=== PATIENT | female | born 1955 | race Caucasian/White ===

== ENCOUNTER 2020-10-24 08:57 | Day surgery (SDC) | payer BC, SELFPAY ==
--- NOTE | 2020-10-21 09:40 | P.CONAN_ITS ---
Documented by User: Arianne Sueroney 10/21/20 09:40 HPI - Anesthesia Eval Consult details Narrative: 65yo F for Upper End[facility] Balloon Dil[facility] Past Medical History Medical History GERD (gastroesophageal reflux disease) Hiatal hernia History of Whitaker's esophagus Surgical History Surgical History H/O colonoscopy History of esophagogastroduodenoscopy (EGD) Hx of oophorectomy Social History Social History Smoking Status: Unknown if ever smoked Use of substances other than those prescribed or required for medical reasons: No Advance Directives Information Provided: No Meds Allergies Allergy/AdvReac Type Severity Reaction Status Date / Time amoxicillin Allergy Intermediate Rash Verified 10/18/20 10:38 sulfamethoxazole Allergy Intermediate Rash Verified 10/18/20 10:38 [From Bactrim] trimethoprim [From Bactrim] Allergy Intermediate Rash Verified 10/18/20 10:38 Home Medications Medication Instructions Recorded Confirmed Last Taken Type Vitamin D3 1 tab PO DAILY 10/18/20 10/18/20 Unknown History calcium 600 mg PO DAILY 10/18/20 10/18/20 Unknown History cranberry 1 tab PO DAILY 10/18/20 10/18/20 Unknown History multivitamin 1 tab PO DAILY 10/18/20 10/18/20 Unknown History rabeprazole 1 tab PO DAILY 10/18/20 10/18/20 Unknown History Exam Exam Date and Time: October 21, 2020 0940 Height,Weight and Vital Signs: Height 5 ft 5.75 in Weight 83.915 kg Assessment and Plan Assessment Anesthesia Assessment: Chart Reviewed Documented by User: Jann Colbert MD 10/24/20 09:45 PMF[facility] Past Medical History Medical History GERD (gastroesophageal reflux disease) Hiatal hernia History of Whitaker's esophagus Surgical History Surgical History H/O colonoscopy History of esophagogastroduodenoscopy (EGD) Hx of oophorectomy Social History Social History Smoking Status: Unknown if ever smoked Use of substances other than those prescribed or required for medical reasons: No Advance Directives Information Provided: No Meds Allergies Allergy/AdvReac Type Severity Reaction Status Date / Time amoxicillin Allergy Intermediate Rash Verified 10/18/20 10:38 sulfamethoxazole Allergy Intermediate Rash Verified 10/18/20 10:38 [From Bactrim] trimethoprim [From Bactrim] Allergy Intermediate Rash Verified 10/18/20 10:38 Home Medications Medication Instructions Recorded Confirmed Last Taken Type Vitamin D3 1 tab PO DAILY 10/18/20 10/18/20 Unknown History calcium 600 mg PO DAILY 10/18/20 10/18/20 Unknown History cranberry 1 tab PO DAILY 10/18/20 10/18/20 Unknown History multivitamin 1 tab PO DAILY 10/18/20 10/18/20 Unknown History rabeprazole 1 tab PO DAILY 10/18/20 10/18/20 Unknown History Exam Airway Mallampati Class: II TM Dist: >3cm Neck ROM: Full Loose/Missing/Broken Teeth: No Heart: RRR Lungs: NL Assessment and Plan Assessment Anesthesia Assessment: Anesthesia Plan Discussed and Chart Reviewed Final Anesthetic Review NPO: Yes ASA Class: III Final Preanesthetic Review: No Changes in Pt Med Stat, Meds/Allgs Chart Reviewed, Consent Obtained/Reviewed and Anes Risks/Benef Reviewed Patient Risk: Intermediate Procedure Risk: Low Anesthetic Plan Anesthetic Plan: MAC: Disposition: Standard PACU
[2020-10-24 09:27] VITALS: BP 133/80; PULSE 73; RESP 16; TEMP 36.8; O2SAT 97
[2020-10-24] MEDS: Lactated Ringers 1,000 ML 100 ML IVCONT (09:35)
[2020-10-24 10:15] VITALS: BP 115/72; PULSE 72; RESP 18; TEMP 36.6; O2SAT 100
--- NOTE | 2020-10-24 10:20 | PM.OP ---
Brief Operative Note Date of Service: 10/24/20 Pre-op diagnosis: GERD, Dysphagia Post-op diagnosis: other (Hiatal hernia, Nonobstructing distal esophageal ring) Procedure: EGD with biopsies and Balloon Dilation Surgeon: Gal Richter Anesthesia: MAC Estimated blood loss (mL): 3.0 Pathology: other (A. EG Junction at 35cm) Condition: stable Disposition: PACU
[2020-10-24 10:32] VITALS: BP 132/78; PULSE 72; RESP 16; TEMP 36.6; O2SAT 97
--- NOTE | 2020-10-24 10:58 | OP_ITS ---
SURGEON: Gal Richter MD INDICATIONS: The patient presents for evaluation of gastroesophageal reflux and dysphagia. Full consent has been obtained from her for this, including risks of bleeding and perforation. PREOPERATIVE DIAGNOSIS: POSTOPERATIVE DIAGNOSIS: PROCEDURE PERFORMED: Esophagogastroduodenoscopy with balloon dilation of gastroesophageal junction, and biopsies. ESTIMATED BLOOD LOSS: COMPLICATIONS: ANESTHESIA: Monitored anesthesia care. ASSISTANTS: SPECIMENS: PREOPERATIVE DIAGNOSES: Gastroesophageal reflux and dysphagia. POSTOPERATIVE DIAGNOSES: Gastroesophageal reflux and dysphagia, hiatal hernia. DESCRIPTION OF PROCEDURE: The patient was placed in the left lateral decubitus position. The Olympus video gastroscope was passed in the posterior oropharynx and upper esophagus under direct vision. The scope was passed slowly into the distal esophagus. The gastroesophageal junction appeared at 35 cm. There was some very minimal irregularity consistent with reflux, but no definitive evidence of Whitaker's mucosa nor esophagitis. There was a nonobstructing very mild distal esophageal ring at the EG junction. There was no obstruction of the scope, which easily entered into the stomach. There was a small hiatal hernia. The scope was advanced to the pylorus and the duodenum was cannulated to the descending portion. The duodenum including the bulb appeared normal without mass or ulceration. The scope was withdrawn back in the stomach. The gastric antrum and body appeared normal with good peristalsis. Scope was retroflexed visualizing the proximal stomach carefully which appeared normal, without any sign of mass or ulceration. The scope was straightened out and withdrawn back into the esophagus. Given her symptomatology, I did use a [employer] incremental balloon to dilate the gastroesophageal junction from an 18 mm to a 19 mm balloon at the recommended pressure for between 30 and 60 seconds each. There was no appreciable heme nor any obvious disruption of the very subtle esophageal ring. I also obtained biopsies at this level as well. The scope was withdrawn through the remainder of the esophagus, which appeared normal. The scope was withdrawn from the patient. She tolerated the procedure well and was returned to the recovery area in stable condition. IMPRESSION: 1. Hiatal hernia. 2. Gastroesophageal reflux. 3. Very subtle and nonobstructing distal esophageal ring, status post balloon dilation. PLAN: The results of the biopsy will be checked. At this point, she has been on rabeprazole for about a week or so and has noticed an improvement in both her reflux and swallowing symptoms. I did advise her to continue this long-term. She will also continue a lactose-free diet, which she thinks is helping her abdominal symptoms of gas and bloating as well. She should undergo repeat colonoscopy in 2022. She will otherwise see me on a p.r.n. basis. This has been discussed with her . MD ZAC Jefferson/CONNER / [id number]
== END 2020-10-24 11:05 | disposition home or self-care (01) ==
PROVIDERS: PCP Internal Medicine; Visit Provider Internal Medicine
PROC: (CPT 43249; principal; 2020-10-24 10:10)
DX: K22.8 Other specified diseases of esophagus (principal); R13.10 Dysphagia, unspecified; K21.9 Gastro-esophageal reflux disease without esophagitis; K44.9 Diaphragmatic hernia without obstruction or gangrene; Z79.899 Other long term (current) drug therapy; Z88.0 Allergy status to penicillin; Z88.2 Allergy status to sulfonamides
CPT/HCPCS: 43249; 43239; 88305; C1726

== ENCOUNTER 2023-11-18 07:28 | Day surgery (SDC) | payer MEDICARE, BC, SELFPAY ==
[2023-11-14 11:29] VITALS: BMI 30.2
--- NOTE | 2023-11-15 13:35 | P.CONAN_ITS ---
Documented by User: Arianne Retana NP 11/15/23 13:36 HPI - Anesthesia Eval Consult details Narrative: 68yo F for Upper Endoscopy with Balloon Dilitation, Colonoscopy ERBE Jet 2 PMF[facility] Past Medical History Medical History (Updated 11/14/23 @ 11:30 by Manuela Milton, IHSAN) Arthritis History of Whitaker's esophagus GERD (gastroesophageal reflux disease) Hiatal hernia Surgical History Surgical History (Updated 11/14/23 @ 11:27 by Manuela Milton RN) Hx of oophorectomy History of esophagogastroduodenoscopy (EGD) H/O colonoscopy Social History Social History (Updated 11/14/23 @ 11:30 by Manuela Milton RN) Household Members: Spouse Patient Tobacco Use Status: Never used Tobacco Advance Directives: No Advance Directives Information Provided: Yes Meds Allergies Allergy/AdvReac Type Severity Reaction Status Date / Time amoxicillin Allergy Intermediate Rash Verified 10/18/20 10:38 sulfamethoxazole Allergy Intermediate Rash Verified 10/18/20 10:38 [From Bactrim] trimethoprim [From Bactrim] Allergy Intermediate Rash Verified 10/18/20 10:38 Home Medications ?Medication ?Instructions ?Recorded ?Confirmed ?Last Taken ?Type multivitamin 1 tab PO DAILY 10/18/20 11/14/23 Unknown History rabeprazole 20 mg tablet,delayed 1 tab PO DAILY 10/18/20 11/14/23 Unknown History release calcium carbonate 600 mg calcium 600 mg PO DAILY 11/14/23 11/14/23 Unknown History (1,500 mg) tablet cholecalciferol (vitamin D3) 25 25 mcg PO DAILY 11/14/23 11/14/23 Unknown History mcg (1,000 unit) capsule (Vitamin D3) cranberry 500 mg capsule 500 mg PO BID 11/14/23 11/14/23 Unknown History Exam Height,Weight and Vital Signs: Height 5 ft 5.75 in Weight 84.368 kg Assessment and Plan Assessment Anesthesia Assessment: Chart Reviewed Documented by User: Leno Bustillos MD 11/18/23 08:17 [facility] Past Medical History Medical History (Updated 11/14/23 @ 11:30 by Manuela Milton, IHSAN) Arthritis History of Whitaker's esophagus GERD (gastroesophageal reflux disease) Hiatal hernia Family History Family history of problems with anesthesia: No Surgical History Surgical History (Updated 11/14/23 @ 11:27 by Manuela Milton RN) Hx of oophorectomy History of esophagogastroduodenoscopy (EGD) H/O colonoscopy History of Problems with Anesthesia: No Social History Social History (Updated 11/14/23 @ 11:30 by Manuela Milton RN) Household Members: Spouse Patient Tobacco Use Status: Never used Tobacco Advance Directives: No Advance Directives Information Provided: Yes Meds Allergies Allergy/AdvReac Type Severity Reaction Status Date / Time amoxicillin Allergy Intermediate Rash Verified 10/18/20 10:38 sulfamethoxazole Allergy Intermediate Rash Verified 10/18/20 10:38 [From Bactrim] trimethoprim [From Bactrim] Allergy Intermediate Rash Verified 10/18/20 10:38 Home Medications ?Medication ?Instructions ?Recorded ?Confirmed ?Last Taken ?Type multivitamin 1 tab PO DAILY 10/18/20 11/14/23 Unknown History rabeprazole 20 mg tablet,delayed 1 tab PO DAILY 10/18/20 11/14/23 Unknown History release calcium carbonate 600 mg calcium 600 mg PO DAILY 11/14/23 11/14/23 Unknown History (1,500 mg) tablet cholecalciferol (vitamin D3) 25 25 mcg PO DAILY 11/14/23 11/14/23 Unknown History mcg (1,000 unit) capsule (Vitamin D3) cranberry 500 mg capsule 500 mg PO BID 11/14/23 11/14/23 Unknown History Exam Airway Mallampati Class: II TM Dist: >3cm Neck ROM: Full Loose/Missing/Broken Teeth: No Heart: rrr Lungs: cta Assessment and Plan Assessment Anesthesia Assessment: Anesthesia Plan Discussed Final Anesthetic Review Family History of Problems with Anesthesia: No History of Problems with Anesthesia: No NPO: Yes ASA Class: II Final Preanesthetic Review: No Changes in Pt Med Stat, Meds/Allgs Chart Reviewed, Consent Obtained/Reviewed and Anes Risks/Benef Reviewed Patient Risk: Intermediate Procedure Risk: Intermediate Anesthetic Plan Anesthetic Plan: MAC: Disposition: Standard PACU
[2023-11-18 08:18] VITALS: BMI 30.3
[2023-11-18 08:19] VITALS: BP 132/79; PULSE 74; RESP 16; TEMP 36.7; O2SAT 99
[2023-11-18] MEDS: Lactated Ringers 1,000 ML 100 ML IVCONT (08:26)
[2023-11-18 09:41] VITALS: BP 114/71; PULSE 74; RESP 16; TEMP 36.1; O2SAT 100
--- NOTE | 2023-11-18 09:48 | P.BOP_ITS ---
Brief Operative Note Date of Service: 11/18/23 Pre-op diagnosis: Whitaker's, Dysphagia, Screening Post-op diagnosis: other (Same, Esophageal ring, Hiatal hernia, Colon Polyp) Procedure: EGD with bx and dilation with a 19-20mm balloon, Colonoscopy to the cecum and TI with bx/removal of polyp Surgeon: Gal Richter MD Anesthesia: MAC Was an Armored Cable Machine Operator used for this Procedure?: No Estimated blood loss (mL): 2.0 Pathology: other (A. Eg Junction at 35cm B. Transverse colon polyp) Condition: stable Disposition: PACU
[2023-11-18 09:56] VITALS: BP 120/70; PULSE 72; RESP 18; O2SAT 100
[2023-11-18 10:10] VITALS: BP 127/89; PULSE 60; RESP 18; TEMP 36.5; O2SAT 100
--- NOTE | 2023-11-18 10:21 | OP_ITS ---
DATE OF SERVICE: 11/18/2023 SURGEON: Gal Richter MD INDICATIONS: The patient presents for evaluation of Whitaker esophagus, intermittent dysphagia, and colorectal cancer screening. Full consent has been obtained from her for this, including risks of bleeding and perforation. PREOPERATIVE DIAGNOSIS: POSTOPERATIVE DIAGNOSIS: PROCEDURE PERFORMED: Esophagogastroduodenoscopy with balloon dilation of esophageal ring and biopsies, and colonoscopy to the cecum and terminal ileum with biopsy and removal of polyp. ESTIMATED BLOOD LOSS: COMPLICATIONS: ANESTHESIA: Monitored anesthesia care. ASSISTANTS: SPECIMENS: PREOPERATIVE DIAGNOSES: Whitaker esophagus, dysphagia, personal history of tubular adenoma of the colon, and colorectal cancer screening. POSTOPERATIVE DIAGNOSES: Whitaker esophagus, dysphagia, personal history of tubular adenoma of the colon, colorectal cancer screening, nonobstructing esophageal ring, hiatal hernia, colon polyp, diverticulosis, and internal hemorrhoids. DESCRIPTION OF PROCEDURE: The patient was placed in the left lateral decubitus position. The Olympus video gastroscope was passed in the posterior oropharynx and upper esophagus under direct vision. The scope was passed slowly into the distal esophagus. The gastroesophageal junction appeared at 35 cm. There was some slight irregularity consistent with reflux and possibly small areas of Whitaker mucosa. There was no evidence of any esophagitis nor any lesions. There was a nonobstructing esophageal ring and the scope easily passed this into a small hiatal hernia. The scope was advanced to the pylorus, and the duodenum was cannulated to the descending portion. The duodenum including the bulb appeared normal without mass or ulceration. The scope was withdrawn back to the stomach. The gastric antrum and body appeared normal with good peristalsis. The scope was retroflexed visualizing the proximal stomach carefully, which appeared normal, without any sign of mass or ulceration. The scope was straightened and withdrawn back to the esophagus. Given her intermittent dysphagia and the esophageal ring, I did use a [employer] incremental balloon to dilate the esophageal ring from 19 mm to 20 mm at the recommended pressure for between 30 and 60 seconds each. Post dilation, there did not appear to be any significant change to the ring nor any heme. I did obtain multiple biopsies at the EG junction at 35 cm. Proximal to this, the esophageal mucosa appeared normal. The scope was withdrawn from the patient she was turned around for the colonoscopy. The digital rectal exam revealed no abnormalities. The Olympus video pediatric colonoscope was entered into the rectum and advanced to the cecum with the assistance of abdominal wall pressure. Once in the cecum, I did identify normal-appearing cecal pouch with appendiceal orifice and a normal-appearing ileocecal valve. The terminal ileum was cannulated and appeared normal. The scope was withdrawn back in the colon. The entire cecum and ileocecal valve appeared normal. The scope was slowly withdrawn assessing all mucosal surfaces carefully. Preparation was excellent. In the proximal transverse colon was a flat, approximately 4 mm polyp, which was biopsied and completely removed with a cold biopsy forceps. I did not visualize any other polyps, colitis, nor angiodysplasia. There was a mild amount of sigmoid diverticulosis. In the rectum, scope was retroflexed visualizing internal hemorrhoids, but no other pathology. The rectal mucosa appeared normal. Scope was straightened and withdrawn from the patient. She tolerated both procedures well and was returned to the recovery area in stable condition. IMPRESSION: 1. Hiatal hernia. 2. Esophageal ring. 3. History of Whitaker esophagus. 4. Colon polyp. 5. Diverticulosis. 6. Internal hemorrhoids. PLAN: The results of the biopsies will be checked. I would recommend a repeat upper endoscopy and colonoscopy in 5 years. She will continue her rabeprazole for her reflux. She was advised not to use any aspirin and NSAIDs for 1 week. She will otherwise see me on a p.r.n. basis. This has been discussed with her . MD ZAC Jefferson/CONNER / [id number]
== END 2023-11-18 10:41 | disposition home or self-care (01) ==
PROVIDERS: PCP Internal Medicine; Visit Provider Internal Medicine
PROC: (CPT 45380; principal; 2023-11-18 08:40)
DX: Z12.11 Encounter for screening for malignant neoplasm of colon (principal); Z86.010 Personal history of colon polyps; D12.3 Benign neoplasm of transverse colon; K57.30 Diverticulosis of large intestine without perforation or abscess without bleeding; K64.8 Other hemorrhoids; R13.10 Dysphagia, unspecified; K22.70 Barrett's esophagus without dysplasia; K44.9 Diaphragmatic hernia without obstruction or gangrene; K21.9 Gastro-esophageal reflux disease without esophagitis; K22.2 Esophageal obstruction; M19.90 Unspecified osteoarthritis, unspecified site; Z79.899 Other long term (current) drug therapy
CPT/HCPCS: 45380; 43249; 43239; 88305; 88313; C1726; C2618; J1596; J2704